=== PATIENT | male | born 1960 | race Caucasian/White ===

== ENCOUNTER 2019-05-21 15:45 | Emergency (ER) | payer OTHER ==
[2019-05-21] MEDS ORDERED: Lorazepam 2 MG/ML VIAL ONE (16:20)
== END 2019-05-21 17:30 | disposition home or self-care (01) ==
LOC: ERS 15:45
DX: K94.23 Gastrostomy malfunction (principal); I10 Essential (primary) hypertension
CPT/HCPCS: 99283; J2060

== ENCOUNTER 2020-09-06 08:28 | Emergency (ER) | payer OTHER ==
[2020-09-06 08:46] LABS: Actual Bicarbonate (HCO3a) 23.3 mEq/L (22-28); Analyzer IN Cardio ER; Base Excess (BEa) 1.3 mEq/L (-2.0 to +3.0); CO2 Tension 29.2 mmHg (35.0-45.0); Carboxyhemoglobin (COHb) 0.1 gm% (0.0-3.0); Hemoglobin (Hb) 12.4 g/dL (14.0-18.0); O2 Tension (PaO2), arterial 63.2 mmHg (80.0-100.0); pH, Arterial 7.52 (7.35-7.45)
[2020-09-06 08:47] LABS: Puncture Site LRA
--- NOTE | 2020-09-06 08:59 | RAD ---
XR Chest 1 View Portable HISTORY: Respiratory failure COMPARISON: None FINDINGS: There is an endotracheal tube tip about 2.5 cm above the level of the rosette. No pneumothoraces or l obar consolidation are seen. The heart size is normal. There is suggestion of a small right pleural effusion with adjacent mild atelectatic change. An old fracture of the left clavicle is noted.
[2020-09-06 09:22] LABS: Bilirubin Negative (Negative); Blood, Urine Negative (Negative); Glucose, Urine (Dipstick) Negative (Negative); Ketone, Urine Trace mg/dL (Negative); Leukocyte Negative (Negative); Nitrite Negative (Negative); Protein, Urine (Dipstick) Negative (Neg-Trace); pH, Urine 7.5 (5.0-9.0)
[2020-09-06 09:23] LABS: Clarity Clear (Clear)
[2020-09-06] MEDS ORDERED: Vancomycin HCl 1.5 GM in Sodium Chloride 0.9% 250 ML 300 ML IVPB SCH (09:30)
[2020-09-06] MEDS ORDERED: Fentanyl CADD 100 ML IV SCH (09:30)
[2020-09-06 09:43] LABS: Hemoglobin 11.7 g/dL (14.0-18.0); Mean Corpuscular HGB CONC 33.7 g/dL (32.0-36.0); Mean Corpuscular Hemoglobin 30.8 pg (27.0-31.0); Mean Corpuscular Volume 91.5 fL (78.0-98.0); Mean Platelet Volume 9.1 fL (7.4-10.4); Platelet Count 126 thou/uL (130-400); White Blood Cell (WBC) Count 8.7 thou/uL (4.8-10.8)
[2020-09-06 10:02] LABS: Band 30 % (5-11); Lymphocytes 16 % (21-51); MDiff Complete? YES; Monocytes 12 % (0-10); Neutrophil 42 % (42-75); Platelet Morphology Comment Appears Decreased; Polychromasia SLIGHT = 2-3 cells (100X) (0-2/hpf)
[2020-09-06 10:09] LABS: ALT (SGPT) 15 U/L (8-55); AST (SGOT) 22 U/L (5-34); Albumin 3.3 g/dL (3.5-5.0); Alkaline Phosphatase 66 U/L (40-110); Anion Gap 13 mmol/L (10-20); BUN (Urea Nitrogen) 19 mg/dL (8.4-25.7); Bilirubin, Total 0.4 mg/dL (0.2-1.2); Calc. Creatinine Clearance 0 mL/min (70-130); Calcium 8.1 mg/dL (7.8-10.44); Carbon Dioxide 26 mmol/L (22-29); Chloride 96 mmol/L (98-107); Globulin 3.1 g/dL (2.4-3.5); Glucose 172 mg/dL (70-105); Potassium 3.7 mmol/L (3.5-5.1); Protein, Total 6.4 g/dL (6.0-8.3); Sodium 131 mmol/L (136-145)
[2020-09-06] MEDS ORDERED: Cefepime 2 GM VIAL ONE (10:21)
[2020-09-06] MEDS ORDERED: Acetaminophen 650 MG Suppository ONE (10:21)
[2020-09-06] MEDS ORDERED: Pantoprazole 40 MG VIAL ONE (10:21)
[2020-09-06 10:23] LABS: SARS-CoV-2 NAA Rapid Test Not Detected (NotDetected)
[2020-09-06] MEDS ORDERED: Iopamidol-370 76% 500 ML 1 ML ONE (10:44)
[2020-09-06] MEDS ORDERED: Norepinephrine 4 MG/4 ML VIAL ONE (10:48)
--- NOTE | 2020-09-06 11:19 | CT ---
Head CT without contrast 09/06/2020: Comparison: None HISTORY: Altered mental status TECHNIQUE: Axial CT imaging at 5 mm intervals from vertex through skull base without contrast FINDINGS: There is mucosal thickening involving bilateral ethmoid air cells, maxillary sinuses, and s phenoid sinuses. There is atherosclerotic calcification of the cavernous carotid arteries. No acute osseous abnormality is seen. There is evidence of prior left frontal craniotomy. There is extensive encephalomalacia involving the left frontal, left temporal, and left parietal lobe s with associated prominence of the left lateral ventricle and volume loss involving the left cerebral peduncle. Findings suggesting cystic encephalomalacia noted abutting the left lateral ventri cheryl measuring 5.7 cm. Areas of cystic volume loss noted within the basal ganglia on the left. No intracranial hemorrhage, midline shift, or mass effect. IMPRESSION: Postoperative changes and extensive encephalomalacia involving the left cerebral hemisphe re as detailed above. Findings suggest extensive prior insult/infarction and the postoperative changes could be related to prior trauma or prior tumor resection. The lack of comparison imaging limits detailed assessment. If there is clinical concern for an acute intracranial abnormality, follow-up MRI suggested.
--- NOTE | 2020-09-06 11:44 | CT ---
CT ANGIO OF CHEST PERFORMED WITH IV CONTRAST ENHANCEMENT WITH 3D RECONSTRUCTIONS: Date: 09/06/2020 HISTORY: Dyspnea. Patient was intubated in the field. COMPARISON: Chest x-ray done earlier this morning. FINDINGS: Since the prior chest x-ray, there has been development of significant atelectatic changes of the rig ht upper and lower lobes, which are almost completely collapse. There is also left lower lobe atelect asis. Some minimal ground-glass opacity is seen within the right middle lobe and left lower lobe. Thi s is not classic for COVID. It could just represent some pneumonitis change. The endotracheal tube appears to be in satisfactory position. I do not appreciate any definite medias tinal adenopathy. It is difficult to assess the right hilar region given the extent of atelectasis. T his also makes it difficult to assess the azygoesophageal recess region. Thoracic aorta is normal in caliber. There is good pulmonary artery opacification. No CT evidence for pulmonary embolus. Visualized liver parenchyma is normal. Gallbladder appears mildly distended. Hypodensity within the l eft lobe of the liver statistically is most likely a small cyst. IMPRESSION: 1. Almost complete collapse of the right upper and right lower lobes. This has developed since the p revious chest x-ray exam. 2. Left lower lobe atelectasis. 3. Some minimal patchy ground-glass changes in both lung glass, not classic for COVID, but this pos sibility is not excluded. Other causes of some patchy areas of pneumonitis, including aspiration, wou ld be considerations. 4. No CT evidence for pulmonary embolus. POS: NATALI
--- NOTE | 2020-09-06 11:58 | CT ---
CT ABDOMEN AND PELVIS PERFORMED WITH CONTRAST ENHANCEMENT: Date: 09/06/2020 HISTORY: Abdominal pain and distention. FINDINGS: There is almost complete right lower lobe atelectatic changes, which may be on the basis of mucus plu gging. There is left lower lobe atelectasis also seen. Coronary calcifications are present. The liver, spleen, and pancreas regions appear unremarkable. The gallbladder is distended, but no inf lammatory change. Right and left adrenal glands, and right and left kidneys are normal in size. Calcification in the le ft renal pelvis is felt to be vascular in nature. No significant periaortic or mesenteric adenopathy. Moderate amount of stool throughout the colon and evidence for a very distended rectosigmoid region compatible with fecal impaction. No pelvic lymphadenopathy or mass. No free fluid. A Lopez catheter i s in place. Review of osseous structures showed generalized bony demineralization. Old-appearing compression cannon ge of the superior end plate of L4 are present. IMPRESSION: 1. Marked atelectatic changes of the right lower lobe. 2. Mild gallbladder distention without evidence of gallstones or pericholecystic inflammatory change . 3. Moderate amount of stool throughout the colon with evidence for very distended rectosigmoid colon compatible with fecal impaction. 4. Lopez catheter within the bladder. The bladder is not distended, but there does appear to be some mild bladder wall thickening present. POS: NATALI
--- NOTE | 2020-09-06 13:20 | RAD ---
CHEST 1 VIEW: Date: 09/06/2020 HISTORY: Central line placement. COMPARISON: Radiograph same date. FINDINGS: Right subclavian central venous catheter with tip projecting over right inferior SVC. Although it could be due to rotation, there is increased pleural fluid along the right paratracheal r egion. Extensive atelectasis in the right upper lobe. Air space opacities in right upper lobe. IMPRESSION: 1. Right subclavian central venous catheter with tip in inferior SVC. 2. Worsened right upper lobe consolidative process on the chest radiograph from earlier today, altho ugh relative to the CT angiogram exam. There is a similar appearance to the volume loss in right uppe r and right middle and lower lobes, likely sequelae of mucus plugging. POS: OFF
[2020-09-06] MEDS ORDERED: Dexamethasone 10 MG/ML VIAL ONE (13:49)
[2020-09-06] MEDS ORDERED: Azithromycin 500 MG VIAL ONE (13:49)
[2020-09-06] MEDS ORDERED: Norepinephrine 8 MG/0.9% NS 250 ML ONE (14:33)
[2020-09-06] MEDS ORDERED: Norepinephrine 8 MG/250 ML IVPB SCH (14:45)
[2020-09-06 15:23] LABS: Actual Bicarbonate (HCO3a) 23.6 mEq/L (22-28); Analyzer IN Cardio ER; Base Excess (BEa) -1.5 mEq/L (-2.0 to +3.0); CO2 Tension 41.3 mmHg (35.0-45.0); Calcium, Ionized (arterial) 1.13 mmol/L (1.12-1.30); Carboxyhemoglobin (COHb) 0.3 gm% (0.0-3.0); Hemoglobin (Hb) 11.7 g/dL (14.0-18.0); Potassium - ABG Lab 3.87 mmol/L (3.70-5.30); Puncture Site LRA; pH, Arterial 7.38 (7.35-7.45)
[2020-09-06 15:25] LABS: ALV-art Gradient 464.375 mmHg (0-20)
--- NOTE | 2020-09-10 20:23 | EKG ---
Test Reason : Blood Pressure : / mmHG Vent. Rate : 102 BPM Atrial Rate : 102 BPM P-R Int : 168 ms QRS Dur : 092 ms QT Int : 324 ms P-R-T Axes : 056 077 075 degrees QTc Int : 422 ms Sinus tachycardia Septal infarct , age undetermined Abnormal ECG Confirmed by CRUZ BANDA M.D. ([id number]), purchase request editor BETTY PRATT ([id number]) on 09/10/2020 8:23:18 PM Referred By: Confirmed By:CRUZ BANDA M.D.
== END 2020-09-06 16:29 | disposition short-term general hospital (02) ==
LOC: ERS 08:28
DX: J96.00 Acute respiratory failure, unspecified whether with hypoxia or hypercapnia (principal); J90 Pleural effusion, not elsewhere classified; I10 Essential (primary) hypertension; I48.91 Unspecified atrial fibrillation; Z86.73 Personal history of transient ischemic attack (TIA), and cerebral infarction without residual deficits
CPT/HCPCS: 0240U; 36415; 36556; 36600; 51702; 70450; 71045; 71275; 74177; 80053; 81003; 82805; 83605; 83880; 85025; 86140; 87040; 87086; 93005; 94002; 96365; 96366; 96367; 96368; 96375; 99292; C9113; J0456; J0692; J1100; J3010; J3370; J7050; Q9967

== ENCOUNTER 2023-03-26 16:46 | Emergency (ER) | payer OTHER ==
[2023-03-26] MEDS ORDERED: LORazepam 2 MG/ML SYR.(CARPUJECT) ONE (17:56)
[2023-03-26 18:00] LABS: #Eosinphils 0.1 thou/uL (0.0-0.7); #Monocytes 0.9 thou/uL (0.11-0.59); #Neutrophils 4.4 thou/uL (1.40-6.50); %Basophils 0.3 % (0.0-1.0); %Eosinophils 0.8 % (0.0-10.0); %Lymphocytes 17.5 % (21.0-51.0); Hematocrit 27.2 % (42.0-52.0); Mean Corpuscular HGB CONC 33.1 g/dL (32.0-36.0); Mean Corpuscular Hemoglobin 31.5 pg (27.0-31.0); Mean Corpuscular Volume 95.1 fl (78.0-98.0); Mean Platelet Volume 10.5 fL (7.4-10.4); RBC Distribution Width 15.2 % (11.5-14.5); Red Blood Cell (RBC) Count 2.86 mill/uL (4.70-6.10); White Blood Cell (WBC) Count 6.6 10x3/uL (4.8-10.8)
[2023-03-26 18:11] LABS: Platelet Count 104 10x3/uL (130-400)
[2023-03-26 18:40] LABS: ALT (SGPT) 83 U/L (8-55); AST (SGOT) 42 U/L (5-34); Albumin 2.9 g/dL (3.5-5.0); Alkaline Phosphatase 187 U/L (40-110); Anion Gap 13 mmol/L (10-20); BUN (Urea Nitrogen) 12 mg/dL (8.4-25.7); Bilirubin, Total 1.2 mg/dL (0.2-1.2); Calc. Creatinine Clearance 0 mL/min (70-130); Calcium 9.2 mg/dL (7.8-10.44); Carbon Dioxide 28 mmol/L (22-29); Chloride 104 mmol/L (98-107); Estimated GFR 105; Glucose 89 mg/dL (70-105); Potassium 3.7 mmol/L (3.5-5.1); Protein, Total 5.9 g/dL (6.0-8.3); Sodium 141 mmol/L (136-145)
[2023-03-26 19:39] LABS: Bacteria/HPF None Seen HPF (None Seen); Bilirubin Negative (Negative); Blood, Urine Negative (Negative); CAUTI Indications for Culture Alt mental st,lethar; Clarity Clear (Clear); Glucose, Urine (Dipstick) Normal (Negative); Ketone, Urine Trace mg/dL (Negative); Leukocyte Negative Leu/uL (Negative); Nitrite Negative (Negative); Protein, Urine (Dipstick) Negative (Neg-Trace); RBC/HPF 0-3 HPF (0-3); Specific Gravity, Urine 1.009 (1.002-1.036); Squamous Epithelial None Seen HPF (0-3); Urobilinogen Normal mg/dL (Less than 2); WBC/HPF 0-3 HPF (0-3)
[2023-03-26 19:43] LABS: Urine Culture Reflex No No
[2023-03-26] MEDS ORDERED: Furosemide 40 MG/4 ML VIAL ONE (19:53)
[2023-03-26 21:51] LABS: Lactic Acid 0.9 mmol/L (0.5-2.2)
== END 2023-03-26 22:37 ==
LOC: ERS 16:46
DX: I11.0 Hypertensive heart disease with heart failure (principal); I50.9 Heart failure, unspecified
CPT/HCPCS: 36415; 51701; 70450; 71045; 80053; 81001; 83605; 85025; 87040; 87086; 93005; 96361; 96374; 96375; J1940; J2060

== ENCOUNTER 2023-03-28 10:29 | Inpatient (IN) | payer OTHER ==
[2023-03-28] MEDS ORDERED: EPINEPHrine 1 MG/10 ML Abboject SYRINGE ONE (10:38)
[2023-03-28] MEDS ORDERED: Fentanyl CADD 100 ML IV SCH (10:45)
[2023-03-28] MEDS ORDERED: NOREPINEPHRINE 8 MG/250 ML-D5W 250 ML ONE (10:47)
[2023-03-28] MEDS ORDERED: Vancomycin 1 GM/200 ML (FROZEN) BAG ONE (10:54)
[2023-03-28] MEDS ORDERED: Cefepime 2 GM VIAL ONE (10:54)
[2023-03-28 11:03] LABS: Delete Auto Diff?? YES; Hematocrit 24.3 % (42.0-52.0); Hemoglobin 7.5 g/dL (14.0-18.0); Manual Diff?? YES; Mean Corpuscular HGB CONC 30.9 g/dL (32.0-36.0); Mean Corpuscular Hemoglobin 31.1 pg (27.0-31.0); Mean Corpuscular Volume 100.8 fl (78.0-98.0); Mean Platelet Volume 9.9 fL (7.4-10.4); Platelet Count 98 10x3/uL (130-400); RBC Distribution Width 15.4 % (11.5-14.5); Red Blood Cell (RBC) Count 2.41 mill/uL (4.70-6.10); White Blood Cell (WBC) Count 5.8 10x3/uL (4.8-10.8)
[2023-03-28 11:28] LABS: Troponin I Less than 0.010 ng/mL (< 0.028)
[2023-03-28 11:31] LABS: Band 23 % (5-11); Lymphocytes 21 % (21-51); Monocytes 18 % (0-10); Neutrophil 38 % (42-75); Polychromasia SLIGHT = 2-3 cells (100X) (0-2/hpf)
[2023-03-28 11:32] LABS: Hypochromia SLIGHT = 6-15 cells (100X) (0-5/hpf); Platelet Adequacy Comment Platelets Decreased; Stomatocytes SLIGHT = 2-5 cells (100X) (0-1/hpf)
[2023-03-28 11:32] LABS: Actual Bicarbonate (HCO3a) 27.7 mEq/L (22-28); Analyzer IN Cardio ER; Base Excess (BEa) 5.5 mEq/L (-2.0 to +3.0); CO2 Tension 30.9 mmHg (35.0-45.0); Calcium, Ionized (arterial) 1.04 mmol/L (1.12-1.30); Carboxyhemoglobin (COHb) 0.1 gm% (0.0-3.0); Hematocrit-ABG 24 % (42.0-52.0); O2 Tension (PaO2), arterial 274.5 mmHg (> 80.0); Potassium - ABG Lab 2.96 mmol/L (3.70-5.30); pH, Arterial 7.571 (7.35-7.45)
[2023-03-28 11:34] LABS: ALV-art Gradient 399.875 mmHg (0-20); Puncture Site Right Radial
[2023-03-28 11:57] LABS: Bacteria/HPF None Seen HPF (None Seen); Bilirubin Negative (Negative); Blood, Urine Negative (Negative); CAUTI Indications for Culture Urological Procedure; Clarity Clear (Clear); Glucose, Urine (Dipstick) Normal (Negative); Ketone, Urine Trace mg/dL (Negative); Leukocyte Negative Leu/uL (Negative); Nitrite Negative (Negative); Protein, Urine (Dipstick) 30 mg/dL (Neg-Trace); RBC/HPF 0-3 HPF (0-3); Specific Gravity, Urine 1.023 (1.002-1.036); Squamous Epithelial 0-3 HPF (0-3); WBC/HPF 0-3 HPF (0-3)
[2023-03-28 12:07] LABS: ALT (SGPT) 48 U/L (8-55); AST (SGOT) 29 U/L (5-34); Albumin 2.4 g/dL (3.5-5.0); Alkaline Phosphatase 218 U/L (40-110); Anion Gap 12 mmol/L (10-20); BUN (Urea Nitrogen) 18 mg/dL (8.4-25.7); Bilirubin, Total 0.7 mg/dL (0.2-1.2); Calc. Creatinine Clearance 0 mL/min (70-130); Calcium 7.5 mg/dL (7.8-10.44); Carbon Dioxide 28 mmol/L (22-29); Chloride 105 mmol/L (98-107); Estimated GFR 102; Globulin 2.4 g/dL (2.4-3.5); Glucose 120 mg/dL (70-105); Lipase 5 U/L (8-78); Potassium 3.5 mmol/L (3.5-5.1); Protein, Total 4.8 g/dL (6.0-8.3); Sodium 141 mmol/L (136-145)
[2023-03-28 12:08] LABS: Urine Culture Reflex Yes Yes
[2023-03-28 12:43] LABS: SARS-CoV-2 NAA Rapid Test Not Detected (NotDetected)
[2023-03-28] MEDS ORDERED: Ventilator Sedation Protocol 1 EACH FS SCH (12:53)
[2023-03-28] MEDS ORDERED: Electrolyte Replacement Protocol 1 EACH FS ONE (12:53)
[2023-03-28] MEDS ORDERED: Propofol 1,000 MG/100 ML VIAL IV ONE (12:59)
[2023-03-28] MEDS ORDERED: Propofol BOLUS 1,000 MG/100 ML VIAL IV PRN (13:00)
[2023-03-28] MEDS ORDERED: Electrolyte Replacement Protocol FS PRN (13:00)
[2023-03-28] MEDS ORDERED: Fentanyl BOLUS 250 ML IVPB PRN (13:00)
[2023-03-28] MEDS ORDERED: Morphine 2 MG/ML VIAL SLOW IVP PRN (13:00)
[2023-03-28] MEDS ORDERED: Propofol 1,000 MG/100 ML VIAL IV PRN (13:00)
[2023-03-28] MEDS ORDERED: DISCONTINUE PREVIOUS NARCOTIC PAIN MEDICATIONS AND BENZODIAZEPINES FS SCH (13:00)
[2023-03-28] MEDS ORDERED: Ketamine 50 MG/ML (10ML VIAL) ONE (13:58)
[2023-03-28] MEDS ORDERED: GLUCAGON HCL 1 MG IJ PRN (14:42)
[2023-03-28 14:45] LABS: Hematocrit 24.8 % (42.0-52.0); Hemoglobin 7.7 g/dL (14.0-18.0); Manual Diff?? YES; Mean Corpuscular Hemoglobin 31.2 pg (27.0-31.0); Mean Corpuscular Volume 100.4 fl (78.0-98.0); Mean Platelet Volume 9.9 fL (7.4-10.4); Platelet Count 98 10x3/uL (130-400); RBC Distribution Width 15.4 % (11.5-14.5); Red Blood Cell (RBC) Count 2.47 mill/uL (4.70-6.10); White Blood Cell (WBC) Count 5.9 10x3/uL (4.8-10.8)
[2023-03-28] MEDS: Lactated Ringer's 1,000 ML IV SCH (14:50)
[2023-03-28 14:52] LABS: Delete Auto Diff?? YES
[2023-03-28] MEDS: NOREPINEPHRINE 8 MG/250 ML-D5W 250 ML IVPB SCH (14:53)
[2023-03-28 15:16] LABS: Anion Gap 8 mmol/L (10-20); BUN (Urea Nitrogen) 14 mg/dL (8.4-25.7); Calc. Creatinine Clearance 112 mL/min (70-130); Calcium 7.7 mg/dL (7.8-10.44); Carbon Dioxide 30 mmol/L (22-29); Chloride 107 mmol/L (98-107); Estimated GFR 105; Glucose 130 mg/dL (70-105); Potassium 2.9 mmol/L (3.5-5.1); Sodium 142 mmol/L (136-145)
[2023-03-28 15:17] LABS: Band 25 % (5-11); CellaVision Operator ID LAB.KB; Dohle Bodies SLIGHT; Hypochromia SLIGHT = 6-15 cells HPF (0-5); Large Platelets 3.9 % (0-5); Lymphocytes 15 % (21-51); Macrocytosis SLIGHT = 6-15 cells HPF (0-5); Monocytes 17 % (0-10); Myelocyte 2 % (0-0); Neutrophil 42 % (42-75); Platelet Adequacy Comment Platelets Decreased; Polychromasia SLIGHT = 2-3 cells HPF (0-2); Smudge Cells 12.7 %; Target Cells SLIGHT = 2-5 cells HPF (0-1); Total Cell Count 102
[2023-03-28] MEDS ORDERED: Lactated Ringer's 1,000 ML IV SCH (16:30)
[2023-03-28] MEDS: Potassium Chloride 20 MEQ in Premix Bag 1 BAG IVPB SCH ×2 (16:40→19:32)
[2023-03-28] MEDS ORDERED: Acetaminophen 325 MG TAB PER TUBE PRN (17:14)
[2023-03-28] MEDS ORDERED: BISACODYL 10 MG PR PRN (17:15)
[2023-03-28] MEDS ORDERED: Glucagon 1 MG/ML KIT IM PRN (17:30)
[2023-03-28] MEDS: busPIRone HCl 10 MG TAB PER TUBE SCH ×2 (17:52→22:35)
[2023-03-28] MEDS ORDERED: Cefepime 2 GM in Sodium Chloride 0.9% 100 ML IVPB SCH (18:00)
[2023-03-28] MEDS: QUEtiapine 25 MG TAB PER TUBE SCH (20:16)
[2023-03-28] MEDS: risperiDONE 1 MG TAB PER TUBE SCH (20:16)
[2023-03-28] MEDS: Valproate Sodium 250 mg/5 ml UD Cup PER TUBE SCH (20:16)
[2023-03-28] MEDS: Polyethylene Glycol 3350 17 GM Packet PER TUBE SCH (20:16)
[2023-03-28] MEDS: Benztropine 1 MG TAB PER TUBE SCH (20:16)
[2023-03-28] MEDS ORDERED: Vancomycin 1 GM in Premix Bag 1 BAG IVPB SCH (21:00)
[2023-03-29] MEDS: NOREPINEPHRINE 8 MG/250 ML-D5W 250 ML IVPB SCH ×3 (00:44→23:18)
[2023-03-29] MEDS: Lactated Ringer's 1,000 ML IV SCH ×2 (04:36→17:32)
[2023-03-29 05:11] LABS: #Eosinphils 0.2 thou/uL (0.0-0.7); #Monocytes 1.4 thou/uL (0.11-0.59); #Neutrophils 3.4 thou/uL (1.40-6.50); %Basophils 0.4 % (0.0-1.0); %Eosinophils 3.3 % (0.0-10.0); %Monocytes 20.4 % (0.0-10.0); %Neutrophils 51.3 % (42.0-75.0); Hematocrit 23.2 % (42.0-52.0); Hemoglobin 7.3 g/dL (14.0-18.0); Manual Diff?? YES; Mean Corpuscular HGB CONC 31.5 g/dL (32.0-36.0); Mean Corpuscular Hemoglobin 30.5 pg (27.0-31.0); Mean Platelet Volume 10.3 fL (7.4-10.4); Platelet Count 116 10x3/uL (130-400); RBC Distribution Width 15.6 % (11.5-14.5); Red Blood Cell (RBC) Count 2.39 mill/uL (4.70-6.10); White Blood Cell (WBC) Count 6.7 10x3/uL (4.8-10.8)
[2023-03-29 05:24] LABS: Anion Gap 8 mmol/L (10-20); BUN (Urea Nitrogen) 9 mg/dL (8.4-25.7); Calc. Creatinine Clearance 125 mL/min (70-130); Calcium 7.8 mg/dL (7.8-10.44); Carbon Dioxide 28 mmol/L (22-29); Chloride 106 mmol/L (98-107); Estimated GFR 107; Glucose 106 mg/dL (70-105); Sodium 139 mmol/L (136-145)
[2023-03-29 05:30] LABS: Mean Corpuscular Volume 97.1 fl (78.0-98.0)
[2023-03-29] MEDS ORDERED: Potassium Chloride 40 MEQ in Premix Bag 1 BAG IVPB SCH (06:00)
[2023-03-29 06:24] LABS: Anisocytosis SLIGHT = 6-15 cells HPF (0-5); Band 15 % (5-11); CellaVision Operator ID LAB.JMM; Eosinophils 1 % (0-10); Lymphocytes 17 % (21-51); Monocytes 6 % (0-10); Myelocyte 4 % (0-0); Neutrophil 57 % (42-75); Platelet Adequacy Comment Platelets Decreased; Polychromasia SLIGHT = 2-3 cells HPF (0-2); Total Cell Count 100
[2023-03-29] MEDS ORDERED: Fentanyl CADD 100 ML ONE (06:28)
[2023-03-29] MEDS: Fentanyl CADD 100 ML IV SCH (06:50)
[2023-03-29 07:07] LABS: Actual Bicarbonate (HCO3a) 30.1 mEq/L (22-28); Base Excess (BEa) 4.4 mEq/L (-2.0 to +3.0); CO2 Tension 50.1 mmHg (35.0-45.0); Calcium, Ionized (arterial) 1.12 mmol/L (1.12-1.30); Carboxyhemoglobin (COHb) 0.8 gm% (0.0-3.0); Hematocrit-ABG 34 % (42.0-52.0); Hemoglobin (Hb) 11.4 g/dL (14.0-18.0); Potassium - ABG Lab 3.21 mmol/L (3.70-5.30); pH, Arterial 7.397 (7.35-7.45)
[2023-03-29 07:12] LABS: ALV-art Gradient 174.675 mmHg (0-20); Puncture Site LRA
[2023-03-29] MEDS: Sertraline 25 MG TAB PER TUBE SCH (08:39)
[2023-03-29] MEDS: Ascorbic Acid 500 mg Chewable Tablet PER TUBE SCH (08:39)
[2023-03-29] MEDS: busPIRone HCl 10 MG TAB PER TUBE SCH ×3 (08:39→20:39)
[2023-03-29] MEDS: Benztropine 1 MG TAB PER TUBE SCH ×2 (08:39→20:27)
[2023-03-29] MEDS: Polyethylene Glycol 3350 17 GM Packet PER TUBE SCH ×2 (08:39→20:27)
[2023-03-29] MEDS: Valproate Sodium 250 mg/5 ml UD Cup PER TUBE SCH ×2 (08:40→20:26)
[2023-03-29] MEDS ORDERED: Famotidine/PF 20 mg/2ml Vial SLOW IVP SCH (09:00)
[2023-03-29] MEDS: Cefepime 2 GM in Sodium Chloride 0.9% 100 ML IVPB SCH (20:27)
[2023-03-29] MEDS: Famotidine/PF 20 mg/2ml Vial SLOW IVP SCH (20:27)
[2023-03-29] MEDS: risperiDONE 1 MG TAB PER TUBE SCH (20:27)
[2023-03-29] MEDS: QUEtiapine 25 MG TAB PER TUBE SCH (20:28)
[2023-03-29] MEDS: QUINIDINE PER TUBE SCH (20:34)
[2023-03-29] MEDS: DEXTROMETHORPHAN HBR PER TUBE SCH (20:34)
[2023-03-29] MEDS: DEXTROMETHORPHAN HBR PO SCH (20:34)
[2023-03-29] MEDS: QUINIDINE PO SCH (20:34)
[2023-03-30 05:24] LABS: Hematocrit 25.9 % (42.0-52.0); Hemoglobin 8.3 g/dL (14.0-18.0); Mean Corpuscular Volume 96.6 fl (78.0-98.0); Mean Platelet Volume 9.7 fL (7.4-10.4); Platelet Count 169 10x3/uL (130-400); RBC Distribution Width 15.8 % (11.5-14.5); Red Blood Cell (RBC) Count 2.68 mill/uL (4.70-6.10); White Blood Cell (WBC) Count 8.5 10x3/uL (4.8-10.8)
[2023-03-30 05:25] LABS: Delete Auto Diff?? YES; Manual Diff?? YES
[2023-03-30 05:38] LABS: Band 8 % (5-11); CellaVision Operator ID lab.abc; Eosinophils 4 % (0-10); Lymphocytes 7 % (21-51); Monocytes 12 % (0-10); Myelocyte 4 % (0-0); Neutrophil 65 % (42-75); Nucleated RBC (Manual Ct) 1 % (0); Platelet Adequacy Comment Platelets Normal; Polychromasia SLIGHT = 2-3 cells HPF (0-2); Smudge Cells 14.9 %; Target Cells SLIGHT = 2-5 cells HPF (0-1); Total Cell Count 101
[2023-03-30 06:26] VITALS: BMI 23.8
[2023-03-30] MEDS: Lactated Ringer's 1,000 ML IV SCH ×2 (06:38→17:53)
[2023-03-30 07:49] LABS: ALV-art Gradient 158.675 mmHg (0-20); Actual Bicarbonate (HCO3a) 31.3 mEq/L (22-28); Base Excess (BEa) 6.8 mEq/L (-2.0 to +3.0); CO2 Tension 44.9 mmHg (35.0-45.0); Calcium, Ionized (arterial) 1.09 mmol/L (1.12-1.30); Carboxyhemoglobin (COHb) 0.7 gm% (0.0-3.0); Hematocrit-ABG 24 % (42.0-52.0); Hemoglobin (Hb) 8.2 g/dL (14.0-18.0); O2 Tension (PaO2), arterial 70.4 mmHg (> 80.0); Potassium - ABG Lab 3.21 mmol/L (3.70-5.30); Puncture Site LRA; pH, Arterial 7.461 (7.35-7.45)
[2023-03-30] MEDS: NOREPINEPHRINE 8 MG/250 ML-D5W 250 ML IVPB SCH ×2 (08:18→17:10)
[2023-03-30] MEDS ORDERED: Fentanyl CADD 0 ML ONE (08:25)
[2023-03-30] MEDS: busPIRone HCl 10 MG TAB PER TUBE SCH ×3 (08:44→21:40)
[2023-03-30] MEDS: Valproate Sodium 250 mg/5 ml UD Cup PER TUBE SCH ×2 (08:44→21:39)
[2023-03-30] MEDS: Polyethylene Glycol 3350 17 GM Packet PER TUBE SCH ×2 (08:44→21:40)
[2023-03-30] MEDS: Cefepime 2 GM in Sodium Chloride 0.9% 100 ML IVPB SCH ×2 (08:45→21:39)
[2023-03-30] MEDS: Ascorbic Acid 500 mg Chewable Tablet PER TUBE SCH (08:45)
[2023-03-30] MEDS: Benztropine 1 MG TAB PER TUBE SCH ×2 (08:45→21:39)
[2023-03-30] MEDS: Famotidine/PF 20 mg/2ml Vial SLOW IVP SCH ×2 (08:45→21:40)
[2023-03-30] MEDS: Sertraline 25 MG TAB PER TUBE SCH (08:45)
[2023-03-30] MEDS ORDERED: Fentanyl CADD 100 ML ONE (11:05)
[2023-03-30] MEDS: Fentanyl CADD 100 ML IV SCH (11:07)
[2023-03-30] MEDS: risperiDONE 1 MG TAB PER TUBE SCH (21:39)
[2023-03-30] MEDS: QUEtiapine 25 MG TAB PER TUBE SCH (21:40)
[2023-03-31] MEDS: NOREPINEPHRINE 8 MG/250 ML-D5W 250 ML IVPB SCH ×2 (01:43→11:40)
[2023-03-31 04:09] LABS: #Eosinphils 0.2 thou/uL (0.0-0.7); #Monocytes 1.2 thou/uL (0.11-0.59); %Basophils 0.4 % (0.0-1.0); %Eosinophils 2.2 % (0.0-10.0); %Lymphocytes 19.4 % (21.0-51.0); %Monocytes 16.6 % (0.0-10.0); %Neutrophils 57.8 % (42.0-75.0); Hematocrit 24.4 % (42.0-52.0); Hemoglobin 7.8 g/dL (14.0-18.0); Mean Corpuscular Hemoglobin 31.3 pg (27.0-31.0); Mean Platelet Volume 9.6 fL (7.4-10.4); Platelet Count 190 10x3/uL (130-400); RBC Distribution Width 15.9 % (11.5-14.5); Red Blood Cell (RBC) Count 2.49 mill/uL (4.70-6.10); White Blood Cell (WBC) Count 6.9 10x3/uL (4.8-10.8)
[2023-03-31] MEDS: Fentanyl CADD 100 ML IV SCH ×2 (05:15→23:57)
[2023-03-31 07:07] LABS: Actual Bicarbonate (HCO3a) 33.6 mEq/L (22-28); Base Excess (BEa) 8.4 mEq/L (-2.0 to +3.0); Calcium, Ionized (arterial) 1.08 mmol/L (1.12-1.30); Carboxyhemoglobin (COHb) 0.5 gm% (0.0-3.0); Hematocrit-ABG 30 % (42.0-52.0); Hemoglobin (Hb) 10.1 g/dL (14.0-18.0); O2 Tension (PaO2), arterial 79.8 mmHg (> 80.0); Potassium - ABG Lab 3.28 mmol/L (3.70-5.30); pH, Arterial 7.445 (7.35-7.45)
[2023-03-31 07:10] LABS: Puncture Site LRA
[2023-03-31] MEDS: Cefepime 2 GM in Sodium Chloride 0.9% 100 ML IVPB SCH ×2 (08:55→20:01)
[2023-03-31] MEDS: Valproate Sodium 250 mg/5 ml UD Cup PER TUBE SCH ×2 (08:55→20:01)
[2023-03-31] MEDS: Sertraline 25 MG TAB PER TUBE SCH (08:56)
[2023-03-31] MEDS: Benztropine 1 MG TAB PER TUBE SCH ×2 (08:56→20:00)
[2023-03-31] MEDS: Famotidine/PF 20 mg/2ml Vial SLOW IVP SCH ×2 (08:56→20:01)
[2023-03-31] MEDS: Ascorbic Acid 500 mg Chewable Tablet PER TUBE SCH (08:56)
[2023-03-31] MEDS: busPIRone HCl 10 MG TAB PER TUBE SCH ×3 (08:56→20:01)
[2023-03-31] MEDS: Polyethylene Glycol 3350 17 GM Packet PER TUBE SCH ×2 (08:57→20:01)
[2023-03-31] MEDS: Lorazepam 2 MG/ML VIAL SLOW IVP PRN (10:04)
[2023-03-31] MEDS: Lactated Ringer's 1,000 ML IV SCH (12:27)
[2023-03-31] MEDS: QUEtiapine 25 MG TAB PER TUBE SCH (20:00)
[2023-03-31] MEDS: risperiDONE 1 MG TAB PER TUBE SCH (20:01)
[2023-03-31 20:26] VITALS: TEMP 97.8
[2023-04-01 02:43] VITALS: BP 85/56
[2023-04-01] MEDS: Lactated Ringer's 1,000 ML IV SCH (04:38)
[2023-04-01 05:06] LABS: Hematocrit 24.4 % (42.0-52.0); Hemoglobin 7.8 g/dL (14.0-18.0); Mean Corpuscular Hemoglobin 31.3 pg (27.0-31.0); Mean Platelet Volume 9.6 fL (7.4-10.4); Platelet Count 201 10x3/uL (130-400); Red Blood Cell (RBC) Count 2.49 mill/uL (4.70-6.10); White Blood Cell (WBC) Count 7.7 10x3/uL (4.8-10.8)
[2023-04-01 05:20] LABS: Manual Diff?? YES
[2023-04-01 05:21] LABS: Delete Auto Diff?? YES
[2023-04-01 05:51] LABS: Band 10 % (5-11); CellaVision Operator ID lab.abc; Eosinophils 4 % (0-10); Large Platelets 0.9 % (0-5); Lymphocytes 11 % (21-51); Monocytes 14 % (0-10); Myelocyte 3 % (0-0); Neutrophil 58 % (42-75); Platelet Adequacy Comment Platelets Normal; Polychromasia SLIGHT = 2-3 cells HPF (0-2); RBC Morphology Within Normal Limits; Smudge Cells 8.6 %; Total Cell Count 116
[2023-04-01] MEDS ORDERED: Sodium Chloride 0.9% 1,000 ML IV SCH (08:30)
[2023-04-01 10:26] LABS: ALT (SGPT) 19 U/L (8-55); AST (SGOT) 24 U/L (5-34); Albumin 2.1 g/dL (3.5-5.0); Alkaline Phosphatase 158 U/L (40-110); Anion Gap 8 mmol/L (10-20); BUN (Urea Nitrogen) 5 mg/dL (8.4-25.7); Bilirubin, Total 0.5 mg/dL (0.2-1.2); Calc. Creatinine Clearance 135 mL/min (70-130); Calcium 8.5 mg/dL (7.8-10.44); Carbon Dioxide 32 mmol/L (22-29); Chloride 103 mmol/L (98-107); Estimated GFR 111; Globulin 2.9 g/dL (2.4-3.5); Glucose 113 mg/dL (70-105); Potassium 3.5 mmol/L (3.5-5.1); Sodium 139 mmol/L (136-145)
[2023-04-01] MEDS: Polyethylene Glycol 3350 17 GM Packet PER TUBE SCH ×2 (10:27→14:20)
[2023-04-01] MEDS: Valproate Sodium 250 mg/5 ml UD Cup PER TUBE SCH (10:27)
[2023-04-01] MEDS: Benztropine 1 MG TAB PER TUBE SCH (10:28)
[2023-04-01] MEDS: Sertraline 25 MG TAB PER TUBE SCH (10:28)
[2023-04-01] MEDS: Cefepime 2 GM in Sodium Chloride 0.9% 100 ML IVPB SCH (10:28)
[2023-04-01] MEDS: Famotidine/PF 20 mg/2ml Vial SLOW IVP SCH (10:28)
[2023-04-01] MEDS: Ascorbic Acid 500 mg Chewable Tablet PER TUBE SCH (10:29)
[2023-04-01] MEDS: busPIRone HCl 10 MG TAB PER TUBE SCH (10:29)
[2023-04-01] MEDS: Lorazepam 2 MG/ML VIAL SLOW IVP PRN ×2 (10:45→17:35)
[2023-04-01] MEDS ORDERED: Potassium Bicarbonate/Cit Ac 20 MEQ TAB PER TUBE SCH (11:00)
[2023-04-01] MEDS: NOREPINEPHRINE 8 MG/250 ML-D5W 250 ML IVPB SCH (15:35)
[2023-04-02] MEDS ORDERED: Cosyntropin 250 MCG VIAL SLOW IVP SCH (07:00)
[2023-04-02 11:01] LABS: O2 Tension (PaO2), arterial 47.9 mmHg (> 80.0)
== END 2023-04-01 17:35 | disposition hospice, inpatient (51) | DRG 871 ==
LOC: ERS 10:29 → CCU 12:53
PROVIDERS: ADMIT Family Medicine; ATTEND Family Medicine
PROC: 5A1945Z Respiratory Ventilation, 24-96 Consecutive Hours (ICD-10-PCS; principal; 2023-03-28)
PROC: 0BH17EZ Insertion of Endotracheal Airway into Trachea, Via Natural or Artificial Opening (ICD-10-PCS; 2023-03-28)
PROC: 02HV33Z Insertion of Infusion Device into Superior Vena Cava, Percutaneous Approach (ICD-10-PCS; 2023-03-28)
PROC: B548ZZA Ultrasonography of Superior Vena Cava, Guidance (ICD-10-PCS; 2023-03-28)
PROC: 0D9670Z Drainage of Stomach with Drainage Device, Via Natural or Artificial Opening (ICD-10-PCS; 2023-03-28)
PROC: 3E033XZ Introduction of Vasopressor into Peripheral Vein, Percutaneous Approach (ICD-10-PCS; 2023-03-28)
PROC: 4A033R1 Measurement of Arterial Saturation, Peripheral, Percutaneous Approach (ICD-10-PCS; 2023-03-28)
PROC: 3E03329 Introduction of Other Anti-infective into Peripheral Vein, Percutaneous Approach (ICD-10-PCS; 2023-03-28)
DX: A41.9 Sepsis, unspecified organism (principal); J18.9 Pneumonia, unspecified organism; R65.21 Severe sepsis with septic shock; J80 Acute respiratory distress syndrome; E87.3 Alkalosis; R18.8 Other ascites; Z66 Do not resuscitate; Z51.5 Encounter for palliative care; I48.91 Unspecified atrial fibrillation; G20 Parkinson's disease; E11.9 Type 2 diabetes mellitus without complications; F01.50 Vascular dementia, unspecified severity, without behavioral disturbance, psychotic disturbance, mood disturbance, and anxiety; I95.9 Hypotension, unspecified; D64.9 Anemia, unspecified; D69.6 Thrombocytopenia, unspecified; F02.80 Dementia in other diseases classified elsewhere, unspecified severity, without behavioral disturbance, psychotic disturbance, mood disturbance, and anxiety; E87.6 Hypokalemia; R91.8 Other nonspecific abnormal finding of lung field; I08.3 Combined rheumatic disorders of mitral, aortic and tricuspid valves; Z90.49 Acquired absence of other specified parts of digestive tract; Z78.1 Physical restraint status; Z98.890 Other specified postprocedural states; Z79.899 Other long term (current) drug therapy; Z86.73 Personal history of transient ischemic attack (TIA), and cerebral infarction without residual deficits; I11.0 Hypertensive heart disease with heart failure; I50.9 Heart failure, unspecified
CPT/HCPCS: 31500; 36415; 36416; 36556; 36600; 51701; 51702; 70450; 71045; 74176; 80048; 80053; 81001; 82533; 82805; 83605; 83690; 83880; 84484; 85025; 87040; 87086; 93005; 93010; 93306; 94002; 94003; 96361; 96365; 96374; 96375; J0171; J0692; J1940; J2060; J2272; J2704; J3010; J3370-JW; J3480; J3490; J7050; J7120; S0028; U0002

== ENCOUNTER 2023-04-01 17:54 | Inpatient (IN) | payer OTHER ==
[2023-04-01] MEDS ORDERED: Morphine 2 MG/ML VIAL SLOW IVP PRN (19:07)
[2023-04-01] MEDS ORDERED: Lorazepam 2 MG/ML VIAL SLOW IVP PRN (19:15)
[2023-04-01] MEDS ORDERED: Scopolamine 1.5 mg/72 hour Patch TOP PRN (19:15)
[2023-04-01] MEDS ORDERED: Ondansetron PF 4 MG/2 ML Vial IVP PRN (19:15)
[2023-04-01 19:46] VITALS: BMI 23.8
[2023-04-01] MEDS ORDERED: Morphine 4 MG/ML VIAL ONE (19:53)
[2023-04-01 20:48] VITALS: TEMP 97.8
[2023-04-01] MEDS ORDERED: Morphine 4 MG/ML VIAL SLOW IVP SCH (21:00)
[2023-04-01] MEDS ORDERED: Lorazepam 2 MG/ML VIAL SLOW IVP SCH (23:59)
== END 2023-04-02 00:36 | disposition expired | DRG 951 ==
LOC: 2NO 17:54 → CCU 19:23
PROVIDERS: ADMIT Family Medicine; ATTEND Family Medicine
DX: Z51.5 Encounter for palliative care (principal); J80 Acute respiratory distress syndrome; J18.9 Pneumonia, unspecified organism; A41.9 Sepsis, unspecified organism; R65.21 Severe sepsis with septic shock; E87.3 Alkalosis; J81.1 Chronic pulmonary edema; I10 Essential (primary) hypertension; R13.12 Dysphagia, oropharyngeal phase; G20 Parkinson's disease; I48.91 Unspecified atrial fibrillation; D64.9 Anemia, unspecified; D69.6 Thrombocytopenia, unspecified; E87.6 Hypokalemia; Z79.899 Other long term (current) drug therapy; Z98.890 Other specified postprocedural states
CPT/HCPCS: J2270